=== PATIENT | male | born 1995 | race Caucasian/White ===

== ENCOUNTER 2016-04-16 07:11 | Day surgery (SDC) | payer BC ==
[2016-04-15 11:29] VITALS: Ht 175.3 cm; Wt 70.0 kg
[2016-04-16] VITALS (20 sets, daily range): BP systolic 112–144; BP diastolic 54–74; PULSE 84–112; RESP 11–21
[~2016-04-16] VITALS: Ht 175.3 cm; Wt 70.0 kg
[2016-04-16] MEDS ORDERED: BUPIVACAINE 0.25%/EPI (SDV) 30 ML INJ ONE (09:31)
[2016-04-16] MEDS ORDERED: POLYMYXIN/BACITRACIN 1L IRRIG ONE (09:31)
[2016-04-16] MEDS ORDERED: THROMBIN 5000 UNIT VIAL ONE (09:31)
[2016-04-16] MEDS ORDERED: SURGIFOAM POWDER 1 GM KIT ONE (09:31)
[2016-04-16] MEDS ORDERED: CA CHLORIDE 10% 10 ML SYRINGE ONE (09:32)
--- NOTE | 2016-04-16 10:15 | HPN ---
Date/Time of Note Date/Time of Note DATE: 04/16/16 TIME: 10:15 Interval H&P Admission Note Pt. seen H&P reviewed: No system changes YASMANI SALINAS PA-C Apr 16, 2016 10:15
[2016-04-16] MEDS ORDERED: DIPHENHYDRAMINE 50 MG INJ IV PRN ×2 (10:30→12:00)
[2016-04-16] MEDS ORDERED: ACETAMINOPHEN 325 MG TAB PO PRN (10:30)
[2016-04-16] MEDS ORDERED: HYDROmorphONE 1 MG/ML SYG IV PRN (10:30)
[2016-04-16] MEDS: CEFAZOLIN 2 GM/50 ML (PMX) 50 ML IVPB SCH ×2 (10:30→10:55)
[2016-04-16] MEDS ORDERED: CEPASTAT LOZENGE MT PRN (10:30)
[2016-04-16] MEDS ORDERED: ZOLPIDEM 5 MG TAB PO PRN (10:30)
[2016-04-16] MEDS: LACTATED RINGER'S 1,000 ML IV* ONE ×2 (10:30→11:48)
[2016-04-16] MEDS ORDERED: AL HYDROX/MG HYDROX/SIMETH 30 ML CUP PO PRN (10:30)
[2016-04-16] MEDS: CEFAZOLIN 1 GM/50 ML (PMX) 50 ML IVPB SCH ×2 (10:30→18:06)
[2016-04-16] MEDS ORDERED: BISACODYL 10 MG SUPP PR PRN (10:30)
[2016-04-16] MEDS ORDERED: CYCLOBENZAPRINE 10 MG TAB PO PRN (10:30)
[2016-04-16] MEDS ORDERED: HYDROmorphONE 0.2 MG/ML PCA IV SCH (10:30)
[2016-04-16] MEDS ORDERED: NALOXONE (0.4 MG/ML) INJ IV PRN (10:30)
[2016-04-16] MEDS ORDERED: PROPOFOL 20 ML ONE ×2 (10:56→11:45)
[2016-04-16] MEDS ORDERED: SUCCINYLCHOLINE CHLORIDE 100 MG/5 ML SYG IV ONE (10:56)
[2016-04-16] MEDS ORDERED: ROCURONIUM 50 MG INJ ONE (10:56)
[2016-04-16] MEDS ORDERED: LIDOCAINE 2% (SDV) 5 ML INJ ONE (10:56)
[2016-04-16] MEDS ORDERED: MIDAZOLAM 1 MG/ML 2 ML INJ ONE (10:57)
[2016-04-16] MEDS ORDERED: FENTAnyl 50 MCG/ML VIAL ONE ×2 (11:06→12:07)
[2016-04-16] MEDS ORDERED: CEFAZOLIN 1 GM INJ ONE (11:13)
[2016-04-16] MEDS ORDERED: METOCLOPRAMIDE 10 MG INJ ONE (11:45)
[2016-04-16] MEDS ORDERED: ONDANSETRON 4 MG INJ ONE (11:45)
[2016-04-16] MEDS ORDERED: DEXAMETHASONE 4 MG/ML 1 ML INJ ONE (11:45)
[2016-04-16] MEDS ORDERED: HYDROmorphONE 2 MG/ML SYG ONE (11:47)
[2016-04-16] MEDS ORDERED: GLYCOPYRROLATE 1 MG INJ ONE (11:47)
[2016-04-16] MEDS ORDERED: NEOSTIGMINE 3 MG/3 ML SYRINGE ONE (11:47)
[2016-04-16] MEDS ORDERED: ONDANSETRON 4 MG INJ IV PRN (12:00)
[2016-04-16] MEDS ORDERED: HYDROmorphONE (0.2 MG/ML) 10ML SYG IV PRN ×2 (12:00)
[2016-04-16] MEDS ORDERED: OXYCODONE/ACETAMINOPHEN (5/325) TAB PO PRN (12:00)
[2016-04-16] MEDS ORDERED: PROCHLORPERAZINE 10 MG INJ IV PRN (12:00)
[2016-04-16] MEDS ORDERED: FENTAnyl 50 MCG/ML VIAL IV PRN ×3 (12:00)
[2016-04-16] MEDS ORDERED: MEPERIDINE 25 MG INJ IV PRN (12:00)
[2016-04-16] MEDS: ONDANSETRON 4 MG INJ IV PRN (13:21)
[2016-04-16] MEDS: HYDROmorphONE (0.2 MG/ML) 10ML SYG IV PRN ×2 (13:31→13:46)
--- NOTE | 2016-04-16 13:33 | OPR ---
DATE OF OPERATION: 04/16/2016 PREOPERATIVE DIAGNOSIS: Left L4-L5 and L5-S1 disk herniation with radiculopathy. POSTOPERATIVE DIAGNOSIS: Left L4-L5 and L5-S1 disk herniation with radiculopathy. PROCEDURE: 1. Left L4-5 and L5-S1 hemilaminotomy, partial medial facetectomy, and foraminotomy. 3. Left L4-5 lumbar microdiskectomy. 4. Lateral localizing film x2. 5. Intraoperative neuromonitoring (1.5 hours). 6. Epidural injection via catheter. PRIMARY SURGEON: Nahun Gautam MD STORE ASSISTANT: Monica Gottlieb PA-C NEED FOR ROSIN BARREL FILLER: NEED FOR ROSIN BARREL FILLER: During this spinal surgical procedure, m y cosmetic sales assistant was used to retract and protect the spinal nerves and dural sac. My cosmetic sales assistant also empl oyed the suction catheters to evacuate blood from the surgical field to improve visualization of the neural structures. The cosmetic sales assistant was medically necessary to facilitate the completion of the surge ry in a safe and expeditious manner. State of [place] regulations, as well as hospital bylaws, p reclude the use of non-licensed health care personnel, such as operating room technicians, to perfor m these functions. FINDINGS: Neuromonitoring at the start of the case revealed left L4 amplitude down 50%, left L5 amp litude down 20%, left S1 amplitude down 30%. At the end of the case, nerve signals returned to norm al. The patient had disk herniation on the left at L5-S1 and disk extrusion on the left at L4-L5. ESTIMATED BLOOD LOSS: Less than 30 mL. DRAINS: None. SPECIMENS: L4-5 and L5-S1 disk sent to pathology. COMPLICATIONS OF PROCEDURES: None. ANESTHESIOLOGIST: Leroy Poon TYPE OF ANESTHESIA: General. INDICATIONS FOR PROCEDURE: This is a 20-year-old gentleman with left lumbosacral radiculopathy in t he setting of disk herniation L4-5 and L5-S1. He had failed nonoperative measures, therefore, I rec ommended proceeding with the above-mentioned surgery. Preoperatively, we discussed the risks, benef its, and alternatives. He understood and wished to proceed. DESCRIPTION OF PROCEDURE IN DETAIL: The patient was identified in the preoperative holding area, [facility], taken to the operating room, where he was successfully placed under general an esthesia by Dr. Poon. Neuromonitoring leads were placed, sequential compressive devices were applie d. Neuromonitoring was utilized during the procedure for 1.5 hours to include SSEP, MEP, and EMG. This was performed by [employer]. Start time was 11:30 a.m., closure time was 1:00 p.m. The patient was placed in the operating table in prone position over a Haresh frame. All bony prominenc es were well padded. The back was then prepped and draped in usual sterile fashion. Spinal needles were placed and lateral localizing films obtained to confirm the correct levels. Once this was con firmed, I injected the skin, subcutaneous tissue, and paraspinal musculature with 0.25% Marcaine and epinephrine. Incision was then made over the L4-5 and L5-S1 levels. Incision was taken down to do rsal fascia, was incised with Bovie cautery. I then subperiosteally dissected the left L4, L5, and S1 lamina. Raquel retractors were placed and Kerrison was placed and repeat lateral films obtained to confirm the correct levels. Once this was confirmed, microscope was brought in and a left-sided hemilaminotomy, partial medial facetectomy, and foraminotomy was performed at both the L4-5 and L5-S 1 level. Ligamentum flavum was sharply dissected. My cosmetic sales assistant then retracted neural elements medially at th e L5-S1 level. Annulotomy was made followed by a microdiskectomy. I then turned my attention to th e L4-5 level. Again, my cosmetic sales assistant retracted neural elements medially. The extrusion was identified . Annulotomy was made followed by diskectomy. Once this was done, all nerve signals returned to no rmal. I irrigated the wound and disk space. Hemostasis was achieved with bipolar cautery and Surgi foam. Valsalva maneuver was performed and there was no leak of CSF. The wound was dry and therefor e, I elected not to place a drain. Epidural catheter was passed through which I injected 100 mcg of fentanyl, and the catheter was pulled. Anesthesiologist molly peripheral blood, which was spun down using [employer] device. I took the platelet-poor plasma and mixed this with thrombin and injected t his over the dura for hemostatic purposes. The retractor was removed, and I closed the deep fascia with #1 Vicryl stitch. I closed subcutaneous tissue with 2-0 Vicryl stitch. Microscope was taken o ff the field. A 4-0 Monocryl closure was then performed. Dermabond was then applied. The patient was then awakened from anesthesia and taken to recovery room in stable condition. Lap, sponge, and instrument counts were correct x2. There were no apparent complications during the procedure. The patient was admitted to the orthopedic fish for routine postoperative care to include pain contr ol, neurovascular checks, antibiotics, and physical therapy. Dictated By: NAHUN HILL/CRISTINE Conf#: [id number] DID#: [id number]
--- NOTE | 2016-04-16 13:42 | RADRPT ---
PROCEDURE: XR Lumbar Spine one view. CLINICAL INDICATION: Low back pain. Intraoperative. TECHNIQUE: Prone portable cross-table lateral. COMPARISON: No prior studies are available for comparison. FINDINGS: For the purposes of this report, the last apparent true disc level is considered to be L5-S1. Based on this, the posterior needle markers are present at the lower L3 spinous process level and the mid L5 spinous process level. IMPRESSION: 1. Intraoperative imaging as described above. RPTAT: QQ .Yossi Cronin MD, Date Time Electronically viewed and signed by .Yossi Cronin MD, on 04/16/2016 13:42 .R/
--- NOTE | 2016-04-16 13:42 | RADRPT ---
PROCEDURE: XR Lumbar Spine one view. CLINICAL INDICATION: Low back pain. Intraoperative. TECHNIQUE: Prone portable cross-table lateral. COMPARISON: Prior study done earlier the same day. FINDINGS: For the purposes of this report, the last apparent true disc level is considered to be L5-S1. Based on this, the posterior surgical instrument is present overlying the L5-S1 level. IMPRESSION: 1. Intraoperative imaging as described above. RPTAT: QQ .Yossi Cronin MD, MD Date Time Electronically viewed and signed by .Yossi Cronin MD, on 04/16/2016 13:42 .R/
[2016-04-16] MEDS: D5W-0.45 NACL + KCL 20 MEQ 1,000 ML IV SCH ×2 (18:06→20:15)
--- NOTE | 2016-04-16 18:55 | CONS ---
DATE OF ADMISSION: 04/16/2016 DATE OF CONSULTATION: 04/16/2016 Thank you, Dr. Olvera, for asking us to participate in the medical management of this patient. REASON FOR CONSULTATION: To help manage the patient's gastroesophageal reflux disease, sleep disord er. HISTORY OF PRESENT ILLNESS: This 20-year-old man is now postop a lumbar spine surgery today. The p atient has been having persistent low back pain for approximately 2 years. The pain radiates down h is left lower extremity. The patient has failed to improve significantly with physical therapy and 2 epidural injections. The patient was seen by Dr. Olvera and the patient decided to undergo love best for pain relief. The patient underwent a surgical procedure today, which included left L4-L5 a nd L5-S1 hemilaminectomy, partial facetectomy, and foraminotomy. Also, a left L4-5 level lumbar erika rodiscectomy. The patient had a disk herniation, which was causing his left leg radiculopathy. The patient is now in the recovery room. He is lethargic, but does arouse easily to verbal stimuli. T here is a note on the chart from the patient's primary care physician, Dr. Aamir Morales and this d etails the patient's past medical history. The patient apparently has had chronic diarrhea and inte rmittent constipation. He has also had transient rectal bleeding, and did undergo a GI workup. He has also had gastroesophageal reflux disease. PAST MEDICAL HISTORY: As follows. 1. Diarrhea with alternating constipation. 2. Rectal bleeding. 3. Gastroesophageal reflux disease. 4. Sleep disorder. 5. Low back pain with left-sided sciatica. PAST SURGICAL HISTORY: No prior surgeries. FAMILY HISTORY: Father has essential hypertension. Mother: Hyperlipidemia and osteoporosis. Gran dfather, heart disease. ALLERGIES: HE IS ALLERGIC TO BACTRIM. SOCIAL HISTORY: Currently unemployed, single, never , lives with parents in [place]. Alcoh ol socially. Has never smoked and does not use illicit drugs. PHYSICAL EXAMINATION: GENERAL: At this time reveals a well-developed man in no apparent distress. VITAL SIGNS: Pulse of 96, respirations 13, blood pressure 136/66, O2 saturation 99% on room air. HEENT: Head normocephalic. EYES: Extraocular muscles intact. NOSE AND MOUTH: Normal. NECK: Supple. No neck vein distention. LUNGS: Clear to auscultation. HEART: Regular rhythm. No murmurs, gallops, or rubs. ABDOMEN: Soft, nontender. EXTREMITIES: No peripheral edema. IMPRESSION: This patient is now postoperative a lumbar spine surgery today. He seems comfortable. He does have a history of what sounds like irritable bowel syndrome, rectal bleeding, sleep disorde r. PLAN: 1. Resume routine medications. 2. Check labs in the morning. 3. Postop lumbar spine surgery protocol. 4. I will follow the patient along with you. Dictated By: LUCIE GRAY MD ND/NTS Conf#: [id number] DID#: [id number] CC: DANYEL OLVERA MD;*End*
[2016-04-16] MEDS: DOCUSATE SODIUM 100 MG CAP PO SCH (20:40)
[2016-04-17 00:24] VITALS: BP 116/57; RESP 19
[2016-04-17] MEDS: CEFAZOLIN 1 GM/50 ML (PMX) 50 ML IVPB SCH (02:14)
[2016-04-17] MEDS: ONDANSETRON 4 MG INJ IV PRN (03:28)
[2016-04-17 05:17] LABS: BASOPHILS % 0.2 % (0.0-2.0); EOSINOPHILS % 0.1 % (0.0-7.0); HEMATOCRIT 38.3 % (42.0-52.0); HEMOGLOBIN 12.7 g/dl (14.0-18.0); LYMPHOCYTES # 1.2 10^3/ul (0.8-2.9); MEAN CORPUSCULAR HEMOGLOBIN 25.6 pg (29.0-33.0); MEAN CORPUSCULAR VOLUME 77.7 fl (82.0-101.0); MEAN PLATELET VOLUME 8.3 fl (7.4-10.4); MONOCYTE # 0.8 10^3/ul (0.3-0.9); MONOCYTES % 8.2 % (0.0-11.0); NEUTROPHIL # 7.8 10^3/ul (1.6-7.5); NEUTROPHILS % 79.5 % (39.0-77.0); PLATELET COUNT 282 10^3/UL (140-440); RED BLOOD COUNT 4.94 10^6/ul (4.70-6.10); RED CELL DISTRIBUTION WIDTH 14.5 % (11.5-14.5); UNCORRECTED WBC 9.9 10^3/ul (4.8-10.8); WHITE BLOOD COUNT 9.9 10^3/ul (4.8-10.8)
[2016-04-17] MEDS: D5W-0.45 NACL + KCL 20 MEQ 1,000 ML IV SCH (05:19)
[2016-04-17 05:30] LABS: POTASSIUM 3.9 mmol/L (3.5-5.1)
[2016-04-17 05:32] LABS: CREATININE 0.78 mg/dl (0.61-1.24)
[2016-04-17 05:33] LABS: CALCIUM 8.7 mg/dl (8.4-10.2); MAGNESIUM 1.8 mg/dl (1.7-2.5)
[2016-04-17 05:46] LABS: CONDITION 1; LH ANALYZER COMMENTS 1
[2016-04-17 07:36] VITALS: BP 112/55; RESP 19
--- NOTE | 2016-04-17 08:57 | CONS ---
Date/Time of Note Date/Time of Note DATE: 04/17/16 TIME: 08:54 Assessment/Plan Assessment/Plan Chief Complaint/Hosp Course 1. he is 1 day post op a lumbar spine surgery . He is doing well . 2. continue current medication and PT . Problems: Consultation Date/Type/Reason Admit Date/Time Initial Consult Date 24 HR Interval Summary Free Text/Dictation He is awake and responsive . Constitutional: improved, no complaints Exam/Review of Systems Vital Signs Vitals Vital Signs Date Time Temp Pulse Resp B/P Pulse Ox O2 Delivery O2 Flow Rate FiO2 04/17/16 07:36 97.0 70 19 112/55 98 04/16/16 17:15 Room Air 04/16/16 13:39 2.0 Intake and Output 04/16/16 04/16/16 04/17/16 15:00 23:00 07:00 Intake Total 1350 ml 600 ml 1400 ml Output Total 30 ml 400 ml Balance 1320 ml 200 ml 1400 ml Exam Constitutional: alert, oriented, well developed Psych: nl mood/affect, no complaints Respiratory: clear to auscultation, normal air movement Cardiovascular: nl pulses, regular rate and rhythm Musculoskeletal: nl extremities to inspection Results Result Diagram: 04/17/16 0418 04/17/16 0418 Results 24 hrs Laboratory Tests Test 04/17/16 04:18 Anion Gap 16 Basophils # 0.0 Basophils % 0.2 Blood Morphology Comment Blood Urea Nitrogen 7 Calcium Level 8.7 Carbon Dioxide Level 27 Chloride Level 100 Creatinine 0.78 Eosinophils # 0.0 Eosinophils % 0.1 Glucose Level 140 Hematocrit 38.3 L Hemoglobin 12.7 L Lymphocytes # 1.2 Lymphocytes % 12.0 L Magnesium Level 1.8 Mean Corpuscular Hemoglobin 25.6 L Mean Corpuscular Hemoglobin Concent 33.0 Mean Corpuscular Volume 77.7 L Mean Platelet Volume 8.3 Monocytes # 0.8 Monocytes % 8.2 Neutrophils # 7.8 H Neutrophils % 79.5 H Nucleated Red Blood Cells # 0.0 Nucleated Red Blood Cells % 0.0 Platelet Count 282 Potassium Level 3.9 Red Blood Count 4.94 Red Cell Distribution Width 14.5 Sodium Level 139 White Blood Count 9.9 Medications Medications Current Medications Potassium Chloride/Dextrose/ Sod Cl (D5-1/2ns + KCl 20 Meq) 1,000 ml @ 100 mls/ hr Q10H IV Last administered on 04/16/16 18:06; Admin Dose 100 MLS/HR; Start 04/16/16 at 10:15 Acetaminophen/ Hydrocodone Bitart ([place] (10/325)) 1 tab Q4H PRN PO PAIN LEVEL 1-5; Start 04/17/16 at 10:00 Acetaminophen/ Hydrocodone Bitart ([place] (10/325)) 2 tab Q4H PRN PO PAIN LEVEL 6-10; Start 04/17/16 at 10:00 Hydromorphone HCl (Dilaudid) 0.2 mg Q1H PRN IV BREAKTHROUGH PAIN; Start at 10:30; Stop 04/17/16 at 10:00 Zolpidem Tartrate (Ambien) 10 mg HS PRN PO INSOMNIA; Start 04/16/16 at 10:30 Ondansetron HCl (Zofran Inj) 4 mg Q6H PRN IV NAUSEA AND/OR VOMITING Last administered on 04/17/16 03:28; Admin Dose 4 MG; Start 04/16/16 at 10:30 Bisacodyl (Dulcolax Supp) 10 mg DAILY PRN AR CONSTIPATION; Start 04/16/16 at 10 :30 Docusate Sodium (Colace) 100 mg BID PO Last administered on 04/16/16 20:40; Admin Dose 100 MG; Start 04/16/16 at 21:00 Al Hydrox/Mg Hydrox/Simethicone (Mag-Al Plus) 15 ml Q6H PRN PO CONSTIPATION/ DYSPEPSIA; Start 04/16/16 at 10:30 Acetaminophen (Tylenol Tab) 650 mg Q4H PRN PO SHEPHERD OR TEMP GREATER THAN 101.3F; Start 04/16/16 at 10:30 Cyclobenzaprine HCl (Flexeril) 10 mg TID PRN PO MUSCLE SPASMS Last administered on 04/17/16 08:08; Admin Dose 10 MG; Start 04/16/16 at 10:30 Phenol (Cepastat Lozenge) 1 lozenge PRN PRN MT SORE THROAT; Start 04/16/16 at 10:30 Diphenhydramine HCl (Benadryl) 25 mg Q6H PRN IV ITCHING; Start 04/16/16 at 10: 30 Naloxone HCl (Narcan) 0.2 mg Q2M PRN IV RR 8 BREATHS/MIN OR LESS; Start at 10:30; Stop 04/17/16 at 10:00 Hydromorphone HCl (Dilaudid WELDER AND FITTER) WELDER AND FITTER to be started in PACU Q4PCA IV Last administered on 04/16/16t 13:28; Admin Dose 6 MG; Start 04/16/16 at 10:30; Stop 04/17/16 at 10:00 Miscellaneous Information 1. Hold WELDER AND FITTER at 1,000... WELDER AND FITTER IV ; Start 04/16/16 at 10: 30; Stop 04/17/16 at 10:00 LUCIE GRAY MD Apr 17, 2016 08:57
[2016-04-17] MEDS ORDERED: HYDROCODONE/APAP (10/325) TAB PO PRN ×2 (10:00)
[2016-04-17] MEDS: DOCUSATE SODIUM 100 MG CAP PO SCH (10:21)
--- NOTE | 2016-04-17 19:50 | DS ---
DATE OF ADMISSION: 04/16/2016 DATE OF DISCHARGE: 04/17/2016 ADMITTING DIAGNOSIS: Lumbar disk herniation. DISCHARGE DIAGNOSIS: Lumbar disk herniation. PROCEDURE: Patient taken to the operating room on 04/16/2016 and underwent lumbar diskectomy. HOSPITAL COURSE: The patient was admitted to the orthopedic fish after undergoing above procedure. His postoperative course was uncomplicated. By postoperative day 1, he was deemed stable for disch arge. Followup arranged with the undersigned. Dictated By: DANYEL HILL/CRISTINE Conf#: [id number] DID#: [id number]
== END 2016-04-17 13:49 | disposition home or self-care (01) ==
LOC: SDS 07:11 → EDSTATUS 10:30 → MS1 14:03 → SDS 04-17 13:49
PROVIDERS: ATTEND Specialist
DX: M51.26 Other intervertebral disc displacement, lumbar region (principal); M54.16 Radiculopathy, lumbar region
CPT/HCPCS: 63030; 72020; 80048; 83735; 85025; 86999; 97116; 97163; 97530; J0330; J0690; J1100; J1170; J2175; J2250; J2405; J2710; J2765; J3010; J3480